=== PATIENT | male | born 1985 | race Caucasian/White ===

== ENCOUNTER 2016-11-09 23:34 | Emergency (ER) | payer BC ==
--- NOTE | 2016-11-10 05:49 | ER ---
ADMIT: 11/09/2016 RM/LOC: ER [facility] MR#: [id number] [address] [place] [id number] ARACELI SUTTON [address] [address] Emergency Room Report SEX: M AGE: 31 : 1985 DATE: 11/09/2016 HISTORY OF PRESENT ILLNESS: The patient is a 31-year-old male, complaining of angioedema of face, lips, associated with nausea, cramps, urge to defecate, that began shortly after taking ibuprofen tonight. Prior ate salad with ranch dressing and cinnamon toast, a diet of which he has had many times in the past without adverse effect. He states he had a similar episode that he treated at home with Benadryl after taking ibuprofen. No prior history of nonsteroidal- induced angioedema. Patient is adopted, so unaware of any familial angioedema. Denies any prior history of anaphylaxis in the past. PHYSICAL EXAMINATION: GENERAL: Exam remarkable for nontoxic, afebrile male with obvious facial angioedema, not involving the tongue or airway. LUNGS: Clear. ASSESSMENT AND PLAN: Responded well to epinephrine 0.3 mg IM and Benadryl 50 mg IM. Avoided any steroid injection or oral steroids for allergy testing in the near future. C4 complement level within normal limits. C1 esterase inhibitor pending, tryptase pending. Normal liver and kidney function. Electrolytes, glucose, and CBC. Follow up Dr. Askew as needed. Strongly encourage allergy testing through [facility] this week. Mayank Herrera MD/ juana JOB #: [id number] CC: Mayank Herrera MD, Attending Physician Brijesh Askew MD, Family Physician Brijesh Askew MD
== END 2016-11-10 01:30 | disposition home or self-care (01) ==
LOC: ER 23:34
DX: T78.3XXA Angioneurotic edema, initial encounter (principal)